=== PATIENT | male | born 1980 | race Caucasian/White ===

== ENCOUNTER 2017-08-02 09:53 | Emergency (ER) | payer OTHER ==
[~2017-08-02] VITALS: Ht 170.2 cm; Wt 81.6 kg
[2017-08-02] MEDS ORDERED: MULTIVITAMIN with MINERAL TABLET. PO ONE (10:30)
[2017-08-02] MEDS ORDERED: FOLIC ACID 1 MG TABLET. PO ONE (10:30)
[2017-08-02] MEDS ORDERED: THIAMINE 100 MG TABLET. PO ONE (10:30)
--- NOTE | 2017-08-02 10:52 | PHYS DOC ---
Past Medical History Past Medical History: No Pertinent History Past Surgical History: No Surgical History Alcohol Use: Heavy Additional Information: PT STS "I DRINK A HALF PINT OF VODKA A DAY AND 5-6 AIRPLANE BOTTLES". Drug Use: None Adult General Chief Complaint Chief Complaint: WITHDRAWL HPI HPI Patient is a 36 year old male who presents with complaint of anxiety and possible alcohol withdrawal symptoms. The patient states that he last drank alcohol this morning at 4:30 AM. The patient states that he is a heavy drinker and the patient has been trying to work on alcohol detox. The patient went to [facility] for detox, however the patient became severely anxious and stated he was having heart palpitations. The patient was thus sent to the emergency department by ambulance for evaluation. The patient denies any other associated symptoms. The patient feels confident that his symptoms are due to withdrawal from alcohol. The patient is alert and oriented 3 and is able to provide a coherent history. The patient states that he would like to return to the [facility] for detox but is unable to do so due to his current level of anxiety. Review of Systems Review of Systems Constitutional: Anxiety, denies fever or chills [] Eyes: Denies change in visual acuity, redness, or eye pain [] HENT: Denies nasal congestion or sore throat [] Respiratory: Cough[] Cardiovascular: Palpitations[] GI: Denies abdominal pain, nausea, vomiting, bloody stools or diarrhea [] : Denies dysuria or hematuria [] Musculoskeletal: Denies back pain or joint pain [] Integument: Denies rash or skin lesions [] Neurologic: Denies headache, focal weakness or sensory changes [] All other systems were reviewed and found to be within normal limits, except as documented in this note. Current Medications Current Medications Current Medications Medications (Trade) Dose Ordered Sig/Yenny Start Time Stop Time Status Last Admin Dose Admin Folic Acid (Folic Acid) 1 mg 1X ONCE 08/02/17 10:30 08/02/17 10:34 DC 08/02/17 10:48 1 MG Lorazepam (Ativan) 2 mg PRN Q15MIN PRN 08/02/17 10:45 08/02/17 12:20 2 MG Multivitamins (Thera M Plus) 1 tab 1X ONCE 08/02/17 10:30 08/02/17 10:34 DC 08/02/17 10:49 1 TAB Thiamine Mononitrate (Vitamin B-1) 100 mg 1X ONCE 08/02/17 10:30 08/02/17 10:34 DC 08/02/17 10:48 100 MG Allergies Allergies Allergies Coded Allergies Type Severity Reaction Last Updated Verified No Known Drug Allergies 08/02/17 No Physical Exam Physical Exam Constitutional: Alert, afebrile, appears anxious. [] HENT: Normocephalic, atraumatic, bilateral external ears normal, oropharynx moist, no oral exudates, nose normal. [] Eyes: PERRLA, EOMI, conjunctiva normal, no discharge. [] Neck: Normal range of motion, no tenderness, supple, no stridor. [] Cardiovascular: Tachycardia, regular rhythm, no murmur [] Lungs & Thorax: Bilateral breath sounds clear to auscultation [] Abdomen: Bowel sounds normal, soft, no tenderness, no masses, no pulsatile masses. [] Skin: Warm, dry, no erythema, no rash. [] Back: No tenderness, no CVA tenderness. [] Extremities: No tenderness, no cyanosis, no clubbing, ROM intact, no edema. [] Neurologic: Alert and oriented X 3, normal motor function, normal sensory function, no focal deficits noted. [] Current Patient Data Vital Signs Vital Signs Date Time Temp Pulse Resp B/P (MAP) Pulse Ox O2 Delivery O2 Flow Rate FiO2 08/02/17 12:11 96 155/89 (111) 96 Room Air 08/02/17 10:04 99.1 18 99.1 Lab Values Laboratory Tests Test 08/02/17 09:59 Ethyl Alcohol Level 113 mg/dL (0-10) H EKG EKG Interpreted by me: Heart rate 106, sinus tachycardia, incomplete right bundle branch block, no acute ST/T-wave abnormalities present[] Radiology/Procedures Radiology/Procedures Not performed[] Course & Med Decision Making Course & Med Decision Making Pertinent Labs and Imaging studies reviewed. (See chart for details) Patient was treated with IV Ativan in the emergency department with improvement in symptoms. The patient's symptoms are consistent with acute alcohol withdrawal. Due to response to Ativan, the patient is appropriate for continued outpatient treatment with oral Ativan. Recommended that the patient return to [facility] alcohol detox center immediately upon discharge and once prescription has been obtained for further care. Advised return emergency department for any worsening symptoms. Patient voiced understanding and in agreement with treatment plan. Dragon Disclaimer Dragon Disclaimer This electronic medical record was generated, in whole or in part, using a voice recognition dictation system. Departure Departure Impression: Primary Impression: Alcohol withdrawal Disposition: 01 HOME, SELF-CARE Condition: IMPROVED Referrals: NO PCP (PCP) Patient Instructions: Alcohol Withdrawal Additional Instructions: Follow-up at [facility] alcohol detox center immediately upon discharge from the emergency department for further treatment. Return to the emergency department for any worsening symptoms. Scripts Lorazepam (ATIVAN) 2 Mg Tablet 2 MG PO TID Y for ANXIETY / AGITATION, #30 TAB Prov: SANDY SEGUNDO MD 08/02/17 Problem Qualifiers Primary Impression: Alcohol withdrawal Complication of substance-induced condition: uncomplicated Qualified Codes: F10.230 - Alcohol dependence with withdrawal, uncomplicated SANDY SEGUNDO MD Aug 02, 2017 10:52
[2017-08-02] MEDS ORDERED: LORA2TAB89 PO (12:03)
[2017-08-02 12:11] VITALS: BP 155/89
--- NOTE | 2017-08-03 07:24 | EKG ---
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
== END 2017-08-02 12:36 | disposition home or self-care (01) ==
LOC: ER 09:53
DX: F10.230 Alcohol dependence with withdrawal, uncomplicated (principal); F41.9 Anxiety disorder, unspecified
CPT/HCPCS: 36415; 93005; 96374; 96376; 99285; G0480; J2060